=== PATIENT | female | born 1970 | race Caucasian/White ===

== ENCOUNTER 2017-06-24 23:41 | Inpatient (IN) | payer MEDICAID ==
[~2017-06-24] VITALS: Ht 170.2 cm; Wt 54.9 kg
[2017-06-25 00:19] LABS: BASOPHILS % (AUTO) 0.9 % (0.0-2.0); EOSINOPHILS % (AUTO) 2.1 % (1.0-6.0); HEMATOCRIT 38.7 % (36-46); HEMOGLOBIN 13.4 g/dL (12.0-16.0); LYMPHOCYTES # (AUTO) 3.3 K/uL (1.0-4.8); LYMPHOCYTES % (AUTO) 28.3 % (22.0-44.0); MEAN CORPUSCULAR HGB CONC 34.7 G/dL (31.0-37.0); MEAN CORPUSCULAR VOLUME 92 fL (80-100); MONOCYTES # (AUTO) 0.9 K/uL (0.1-1.0); MONOCYTES % (AUTO) 7.9 % (2.0-9.0); NEUTROPHILS # (AUTO) 7.1 K/uL (1.8-7.7); NEUTROPHILS % (AUTO) 60.8 % (40.0-70.0); PLATELET COUNT (AUTO) 277 K/uL (150-450); RED CELL DISTRIBUTION WIDTH 12.3 % (11.5-14.5)
[2017-06-25 00:26] LABS: AMPHET/METH SCREEN,URINE POSITIVE (NEGATIVE); BARBITURATE SCREEN, URINE NEGATIVE (NEGATIVE); BENZODIAZEPINES SCREEN,URINE NEGATIVE (NEGATIVE); CANNABINOID SCREEN,URINE NEGATIVE (NEGATIVE); COCAINE SCREEN,URINE NEGATIVE (NEGATIVE); METHADONE SCREEN, URINE NEGATIVE (NEGATIVE); OPIATE SCREEN,URINE NEGATIVE (NEGATIVE); PHENCYCLIDINE SCREEN,URINE NEGATIVE (NEGATIVE)
[2017-06-25 00:27] LABS: ANION GAP 11 mmol/L (8-16); CALCIUM, TOTAL 9.2 mg/dL (8.8-10.5); CARBON DIOXIDE 26 mmol/L (22-29); CHLORIDE 102 mmol/L (98-107); CREATININE 0.72 mg/dL (0.60-1.30); GLOMERULAR FILTR. RATE CALC > 60 mL/min (>60); GLUCOSE,RANDOM 92 mg/dL (70-110); SODIUM SERUM 139 mmol/L (136-145); UREA NITROGEN, BLOOD 17 mg/dL (7-18)
[2017-06-25 00:33] LABS: ALANINE AMINOTRANSFERASE 22 U/L (12-78); ALBUMIN 4.2 g/dL (3.4-5.0); ALKALINE PHOSPHATASE 82 U/L (46-116); ASPARTATE AMINOTRANSFERASE 27 U/L (15-37); BILIRUBIN,TOTAL 1.1 mg/dL (0.1-1.0)
[2017-06-25] MEDS ORDERED: PERTUSS(ACELL),DIPH,TET VAC/PF 0.5 ML VIAL IM ONE (02:30)
[2017-06-25] MEDS ORDERED: POTASSIUM CHLORIDE 20 MEQ ER TABLET PO ONE (02:30)
[2017-06-25] MEDS ORDERED: LORazepam 1 MG TABLET PO ONE (03:00)
[2017-06-25 05:00] VITALS: BP 117/66
[2017-06-25] MEDS ORDERED: INFLUENZA VIRUS VACCINE QVS 2017-18 (3YR+)/PF 60 MCG/0.5 ML SYRINGE IM ONE (05:45)
[2017-06-25] MEDS ORDERED: ACETAMINOPHEN 325 MG TABLET PO PRN (06:45)
[2017-06-25] MEDS ORDERED: IBUPROFEN 400 MG TABLET PO PRN (06:45)
[2017-06-25 09:25] LABS: CHOL/HDL RATIO 1.9 (3.9-5.7)
[2017-06-25] MEDS: LORazepam 2 MG TABLET PO PRN ×2 (12:35→16:46)
[2017-06-25 16:17] VITALS: BP 109/77
[2017-06-25] MEDS: HALOPERIDOL 5 MG TABLET PO PRN (16:46)
[2017-06-25] MEDS: QUEtiapine FUMARATE 200 MG TABLET PO SCH (21:06)
[2017-06-25] MEDS: ZOLPIDEM TARTRATE 10 MG TABLET PO PRN (21:06)
[2017-06-26 07:03] VITALS: BP 110/69
[2017-06-26] MEDS ORDERED: ACETAMINOPHEN 325 MG TABLET PO PRN (16:15)
[2017-06-26] MEDS ORDERED: IBUPROFEN 400 MG TABLET PO PRN (16:15)
[2017-06-26 16:37] VITALS: BP 113/71
[2017-06-26] MEDS: QUEtiapine FUMARATE 200 MG TABLET PO SCH (20:49)
[2017-06-27 07:13] VITALS: BP 112/68
[2017-06-27 08:48] VITALS: BP 118/61
[2017-06-27 16:21] VITALS: BP 104/78
[2017-06-27] MEDS: LORazepam 2 MG TABLET PO PRN (16:37)
[2017-06-27] MEDS: HALOPERIDOL 5 MG TABLET PO PRN (16:37)
[2017-06-27] MEDS: QUEtiapine FUMARATE 200 MG TABLET PO SCH (20:21)
[2017-06-28 07:19] VITALS: BP 104/68
[2017-06-28 08:12] LABS: BASOPHILS % (AUTO) 1.3 % (0.0-2.0); EOSINOPHILS % (AUTO) 5.2 % (1.0-6.0); HEMATOCRIT 36.7 % (36-46); HEMOGLOBIN 12.7 g/dL (12.0-16.0); LYMPHOCYTES % (AUTO) 38.1 % (22.0-44.0); MEAN CORPUSCULAR HEMOGLOBIN 32.5 pg (26.0-34.0); MEAN CORPUSCULAR HGB CONC 34.6 G/dL (31.0-37.0); MEAN CORPUSCULAR VOLUME 94 fL (80-100); MONOCYTES # (AUTO) 0.4 K/uL (0.1-1.0); MONOCYTES % (AUTO) 8.2 % (2.0-9.0); NEUTROPHILS # (AUTO) 2.5 K/uL (1.8-7.7); NEUTROPHILS % (AUTO) 47.2 % (40.0-70.0); PLATELET COUNT (AUTO) 240 K/uL (150-450); RED BLOOD CELL COUNT(AUTO) 3.91 MIL/uL (4.00-5.20); RED CELL DISTRIBUTION WIDTH 12.5 % (11.5-14.5)
[2017-06-28 08:40] VITALS: BP 118/75
[2017-06-28 08:44] LABS: CHOL/HDL RATIO 2.7 (3.9-5.7)
[2017-06-28 08:53] LABS: HEMOGLOBIN A1C 5.2 % (4.5-6.2)
[2017-06-28 16:13] VITALS: BP 109/71
[2017-06-28] MEDS: QUEtiapine FUMARATE 200 MG TABLET PO SCH (21:20)
[2017-06-29 07:17] VITALS: BP 110/70
[2017-06-29 08:27] VITALS: BP 111/60
[2017-06-29 16:27] VITALS: BP 107/76
[2017-06-29] MEDS: HALOPERIDOL 5 MG TABLET PO PRN (16:38)
[2017-06-29] MEDS: LORazepam 2 MG TABLET PO PRN (16:38)
[2017-06-29] MEDS: QUEtiapine FUMARATE 200 MG TABLET PO SCH (20:08)
[2017-06-29] MEDS: ZOLPIDEM TARTRATE 10 MG TABLET PO PRN (20:08)
[2017-06-30 06:24] VITALS: BP 102/72
[2017-06-30] MEDS: LORazepam 2 MG TABLET PO PRN (09:40)
[2017-06-30] MEDS: HALOPERIDOL 5 MG TABLET PO PRN (09:40)
[2017-06-30 09:43] VITALS: BP 110/60
[2017-06-30 16:26] VITALS: BP 113/60
[2017-06-30] MEDS: QUEtiapine FUMARATE 200 MG TABLET PO SCH (21:11)
[2017-06-30] MEDS: ZOLPIDEM TARTRATE 10 MG TABLET PO PRN (21:11)
[2017-07-01 05:11] VITALS: BP 114/66
[2017-07-01 09:19] VITALS: BP 104/62
[2017-07-01] MEDS: HALOPERIDOL 5 MG TABLET PO PRN (09:45)
[2017-07-01] MEDS: LORazepam 2 MG TABLET PO PRN (09:45)
[2017-07-01 16:07] VITALS: BP 103/60
[2017-07-01] MEDS: ZOLPIDEM TARTRATE 10 MG TABLET PO PRN (20:40)
[2017-07-01] MEDS: QUEtiapine FUMARATE 200 MG TABLET PO SCH (20:40)
[2017-07-02 06:50] VITALS: BP 117/69
[2017-07-02] MEDS: LORazepam 2 MG TABLET PO PRN (08:08)
[2017-07-02] MEDS: HALOPERIDOL 5 MG TABLET PO PRN (08:08)
[2017-07-02 08:13] VITALS: BP 138/79
[2017-07-02] MEDS ORDERED: QUET200T PO (10:06)
== END 2017-07-02 14:03 | disposition home or self-care (01) | DRG 753 ==
LOC: EMS 23:43 → B3A 06-25 01:32
PROC: 3E0234Z Introduction of Serum, Toxoid and Vaccine into Muscle, Percutaneous Approach (ICD-10-PCS; principal; 2017-06-25)
DX: F31.4 Bipolar disorder, current episode depressed, severe, without psychotic features (principal); R45.851 Suicidal ideations; F15.10 Other stimulant abuse, uncomplicated; E87.6 Hypokalemia; D72.829 Elevated white blood cell count, unspecified; F17.210 Nicotine dependence, cigarettes, uncomplicated; M54.30 Sciatica, unspecified side; F41.9 Anxiety disorder, unspecified; Z59.0 Homelessness; Z79.899 Other long term (current) drug therapy; Z71.51 Drug abuse counseling and surveillance of drug abuser; Z23 Encounter for immunization
CPT/HCPCS: 83036; 90471; 90715; 99285; 99406; G0480